=== PATIENT | male | born 1985 | race Caucasian/White ===

== ENCOUNTER 2019-07-22 21:16 | Emergency (ER) | payer BC ==
[~2019-07-22] VITALS: Ht 190.5 cm; Wt 122.7 kg
[~2019-07-22 21:16] MED LIST: LORTAB 5/500 501 TAB PO; NO HOME MEDICATIONS
[2019-07-22 21:18] VITALS: BP 125/77; TEMP 99.4
[2019-07-22] MEDS ORDERED: IBU800 M1 (21:38)
[2019-07-22] MEDS ORDERED: ALEVE 220MG220 MG PO (21:39)
[2019-07-22] MEDS ORDERED: AMOXICILLIN 8751 TAB PO (21:51)
[2019-07-22 22:10] VITALS: PULSE 72
== END 2019-07-22 22:10 | disposition home or self-care (01) ==
LOC: COL.ER 21:16
DX: S61.210A Laceration without foreign body of right index finger without damage to nail, initial encounter (principal); M75.101 Unspecified rotator cuff tear or rupture of right shoulder, not specified as traumatic; W45.8XXA Other foreign body or object entering through skin, initial encounter; W19.XXXA Unspecified fall, initial encounter